=== PATIENT | male | born 2000 | race Caucasian/White ===

== ENCOUNTER 2023-09-25 17:06 | Emergency (ER) | payer SELFPAY ==
[2023-09-25 18:30] LABS: SARS-CoV-2 NAA Rapid Test Not Detected (NotDetected)
== END 2023-09-25 18:40 | disposition home or self-care (01) ==
LOC: CSHERS 17:06
DX: J10.1 Influenza due to other identified influenza virus with other respiratory manifestations (principal); Z55.6 Problems related to health literacy
CPT/HCPCS: 99283